=== PATIENT | male | born 1960 | race Caucasian/White ===

== ENCOUNTER 2019-03-03 23:20 | Emergency (ER) | payer OTHER, MEDICAID | END 2019-03-04 05:12 | disposition home or self-care (01) | LOC: FTE 23:20 | DX: M19.011 Primary osteoarthritis, right shoulder (principal) | CPT/HCPCS: 73030; 73030-RT; 99283-25 ==

== ENCOUNTER 2019-04-10 13:01 | Emergency (ER) | payer OTHER, MEDICAID ==
[2019-04-10 15:29] LABS: ADD MAN DIFF? NO
[2019-04-10 15:36] LABS: BASOPHIL # 0.1 10^3/ul (0.0-0.1); BASOPHILS % 0.7 % (0.0-2.0); EOSINOPHILS # 0.2 10^3/ul (0.0-0.5); EOSINOPHILS % 2.2 % (0.0-7.0); HEMATOCRIT 39.7 % (42.0-52.0); HEMOGLOBIN 12.3 g/dl (14.0-18.0); LYMPHOCYTES # 2.9 10^3/ul (0.8-2.9); LYMPHOCYTES % 26.2 % (15.0-51.0); MEAN CORPUSCULAR HEMOGLOBIN 29.8 pg (29.0-33.0); MEAN CORPUSCULAR VOLUME 96.1 fl (82.0-101.0); MEAN PLATELET VOLUME 9.5 fl (7.4-10.4); MONOCYTE # 1.1 10^3/ul (0.3-0.9); MONOCYTES % 10.3 % (0.0-11.0); NEUTROPHIL # 6.6 10^3/ul (1.6-7.5); NEUTROPHILS % 60.3 % (39.0-77.0); PLATELET COUNT 380 10^3/UL (140-415); RED BLOOD COUNT 4.13 10^6/ul (4.70-6.10)
[2019-04-10] MEDS: FUROSEMIDE 20 MG TAB PO (15:50)
[2019-04-10 15:54] LABS: ANION GAP 10 (5-13); BLOOD UREA NITROGEN 27 mg/dl (7-20); CALCIUM 9.1 mg/dl (8.4-10.2); CARBON DIOXIDE 25 mmol/L (21-31); CHLORIDE 105 mmol/L (97-110); CREATININE 1.13 mg/dl (0.61-1.24); Estimated GFR > 60 mL/min (>60); GLUCOSE 102 mg/dl (70-220); POTASSIUM 4.9 mmol/L (3.5-5.1); SODIUM 140 mmol/L (135-144)
== END 2019-04-10 17:25 | disposition home or self-care (01) ==
LOC: E/R 13:01
DX: R22.43 Localized swelling, mass and lump, lower limb, bilateral (principal); I87.2 Venous insufficiency (chronic) (peripheral); F15.10 Other stimulant abuse, uncomplicated; Z59.0 Homelessness
CPT/HCPCS: 80048; 85025; 99283

== ENCOUNTER 2019-04-29 13:10 | Emergency (ER) | payer OTHER, MEDICAID ==
[2019-04-29 17:15] LABS: ADD MAN DIFF? NO
[2019-04-29 17:16] LABS: WHITE BLOOD COUNT 13.4 10^3/ul (4.8-10.8)
[2019-04-29 17:16] LABS: BASOPHIL # 0.1 10^3/ul (0.0-0.1); BASOPHILS % 0.4 % (0.0-2.0); EOSINOPHILS # 0.1 10^3/ul (0.0-0.5); HEMATOCRIT 45.6 % (42.0-52.0); HEMOGLOBIN 14.2 g/dl (14.0-18.0); LYMPHOCYTES % 15.2 % (15.0-51.0); MEAN CORPUSCULAR HGB CONC 31.1 g/dl (32.0-37.0); MEAN CORPUSCULAR VOLUME 96.2 fl (82.0-101.0); MEAN PLATELET VOLUME 9.4 fl (7.4-10.4); MONOCYTE # 1.1 10^3/ul (0.3-0.9); MONOCYTES % 7.8 % (0.0-11.0); NEUTROPHIL # 10.1 10^3/ul (1.6-7.5); NEUTROPHILS % 75.2 % (39.0-77.0); PLATELET COUNT 440 10^3/UL (140-415); RED BLOOD COUNT 4.74 10^6/ul (4.70-6.10); RED CELL DISTRIBUTION WIDTH 13.8 % (11.5-14.5)
[2019-04-29] MEDS: ALBUTEROL 0.083% (NEB) 2.5 MG/3 ML AMP NEB (17:36)
[2019-04-29 18:04] LABS: ALANINE AMINOTRANSFERASE 79 IU/L (13-69); ALBUMIN 3.3 g/dl (3.3-4.9); ALBUMIN/GLOBULIN RATIO 0.89; ALKALINE PHOSPHATASE 120 IU/L (42-121); ANION GAP 7 (5-13); ASPARTATE AMINO TRANSFERASE 97 IU/L (15-46); BILIRUBIN,INDIRECT 0.3 mg/dl (0-1.1); BILIRUBIN,TOTAL 0.3 mg/dl (0.2-1.3); BLOOD UREA NITROGEN 25 mg/dl (7-20); CALCIUM 8.3 mg/dl (8.4-10.2); CARBON DIOXIDE 24 mmol/L (21-31); CHLORIDE 107 mmol/L (97-110); CREATININE 1.16 mg/dl (0.61-1.24); Estimated GFR > 60 mL/min (>60); GLUCOSE 122 mg/dl (70-220); POTASSIUM 4.2 mmol/L (3.5-5.1); SODIUM 138 mmol/L (135-144)
[2019-04-29 18:15] LABS: B-TYPE NATRIURETIC PEPTIDE 20600 PG/ML (0-125)
[2019-04-29] MEDS: ENOXAPARIN 80 MG/0.8 ML SYG SC (19:11)
[2019-04-29] MEDS: NITROGLYCERIN 2% 1 GM OINT PKT TD (20:16)
[2019-04-29] MEDS ORDERED: ACETAMINOPHEN 325 MG TAB PO (20:30)
[2019-04-29] MEDS ORDERED: ONDANSETRON 4 MG INJ IV (20:30)
[2019-04-29] MEDS: LORAZEPAM 2 MG INJ IV (21:54)
[2019-04-29] MEDS: SOD CHLORIDE 0.9% 500 ML IV (22:42)
[2019-04-29] MEDS: FUROSEMIDE 40 MG INJ IV (22:42)
== END 2019-04-29 23:30 | disposition short-term general hospital (02) ==
LOC: E/R 23:30
DX: I21.4 Non-ST elevation (NSTEMI) myocardial infarction (principal); F17.210 Nicotine dependence, cigarettes, uncomplicated; I11.0 Hypertensive heart disease with heart failure; I50.9 Heart failure, unspecified; Z59.0 Homelessness
CPT/HCPCS: 71045; 80053; 83880; 84484; 85025; 93005; 94664; 96372; 96374; 96375; 99285-25